=== PATIENT | female | born 1945 | race Caucasian/White ===

== ENCOUNTER 2023-05-26 05:36 | Outpatient (CLI) | payer MEDICARE ==
[~2023-05-26] VITALS: Ht 147.3 cm; Wt 58.6 kg
[2023-05-26] MEDS ORDERED: SIMV20TA26 PO (14:58)
[2023-05-26] MEDS ORDERED: OLME40TA18 PO (14:58)
[2023-05-26] MEDS ORDERED: LORA-1389 PO (14:58)
[2023-05-26] MEDS ORDERED: OMEP-401 PO (14:58)
== END 2023-05-26 15:09 | disposition home or self-care (01) ==
LOC: PREOP 05:36
PROVIDERS: ATTEND Specialist
DX: Z01.818 Encounter for other preprocedural examination (principal)

== ENCOUNTER 2023-06-17 09:24 | Day surgery (SDC) | payer MEDICARE ==
[~2023-06-17] VITALS: Ht 155 cm; Wt 58.6 kg
[~2023-06-17 09:24] MED LIST: LORA-1389 PO; OLME40TA18 PO; OMEP-401 PO; SIMV20TA26 PO
[2023-06-17 09:30] VITALS: BP 132/75
[2023-06-17] MEDS ORDERED: TIMOLOL 0.5% (CATARACTS) 0.3 ML BTL OU PRN (09:30)
[2023-06-17] MEDS ORDERED: LIDOCAINE PF 1% 2 ML VIAL IR PRN (09:30)
[2023-06-17] MEDS ORDERED: POVIDONE IODINE OPHTH SOLN 5% 30 ML OP ONE (09:30)
[2023-06-17] MEDS ORDERED: MOXIFLOXACIN OPHTH SOLN 5 MG/ML 0.5 ML SYRINGE OP ONE (09:30)
[2023-06-17] MEDS: TETRACAINE 0.5% OPHTH SOLN 4 ML BTL (SINGLE DOSE ONLY) OU PRN ×4 (09:40→09:51)
[2023-06-17] MEDS: PHENYLEPHRINE 10% OPHTH SOLN 5 ML BTL OU SCH ×3 (09:43→09:50)
[2023-06-17] MEDS: TROPICAMIDE 1% OPH SOLN (MYDRIACYL) 15 ML BTL OP SCH ×3 (09:44→09:51)
--- NOTE | 2023-06-17 09:48 | Ophthalmologist Pre-Op Note ---
Pre-Operative Progress Note H&P Reviewed The H&P was reviewed, patient examined and no changes noted. Date H&P Reviewed: Jun 17, 2023 Time H&P Reviewed: 09:48 Pre-Op Dx Cataract, Right Eye NGUYEN MCDONNELL MD Jun 17, 2023 09:48
[2023-06-17] MEDS ORDERED: MIDAZOLAM INJ 2 MG/2 ML VIAL ONE (09:53)
--- NOTE | 2023-06-17 10:12 | Ophthalmology Operative Report ---
Cataract removal/placement IOL PREOPERATIVE DIAGNOSIS: Cataract Right Eye POSTOPERATIVE DIAGNOSIS: Cataract Right Eye PROCEDURE: Cataract removal and placement of posterior chamber implant, right eye SURGEON: Cm Mcdonnell ANESTHESIA: Topical with sedation COMPLICATIONS: None ESTIMATED BLOOD LOSS: Minimal DESCRIPTION OF PROCEDURE: After proper informed consent was obtained, the patient, a 77 female, was taken to the Operating Room and the right eye was anesthetized with tetracaine. The right eye was then prepped and draped in the usual manner. A wire lid speculum was placed. A paracentesis was made at the left hand position. Preservative free lidocaine was injected into the anterior chamber followed by viscoelastic. A clear corneal incision was made in the temporal position. A capsulorrhexis was preformed and the central nuclear and cortical material were removed. The posterior capsule was polished and [place] 23.0 [id number] IOL was placed into the capsular bag. The residual viscoelastic was aspirated and balanced saline solution was injected into the anterior chamber. Moxifloxacin was injected into the anterior chamber. The wound was checked and found to be water tight. The patient tolerated the procedure well without complications. CM MCDONNELL MD Jun 17, 2023 10:12
[2023-06-17 10:37] VITALS: BP 121/55
--- NOTE | 2023-06-17 12:14 | Anesthesia-General Post-Op ---
MAC Patient Condition Mental Status/LOC: Same as Preop Cardiovascular: Satisfactory Nausea/Vomiting: Absent Respiratory: Satisfactory Pain: Controlled Complications: Absent Post Op Complications Complications None Follow Up Care/Instructions Patient Instructions None needed. Anesthesiology Discharge Order Discharge Order Patient was doing well this morning after the procedure with no complaints, stable vital signs, no apparent adverse anesthesia problems. No complications reported per nursing. CYRIL WASHINGTON DO Jun 17, 2023 12:14
== END 2023-06-17 10:40 | disposition home or self-care (01) ==
LOC: SDC 09:24
PROVIDERS: ATTEND Specialist
DX: H25.9 Unspecified age-related cataract (principal)
CPT/HCPCS: 66984; V2632